=== PATIENT | male | born 1960 ===

== ENCOUNTER 2017-07-06 08:39 | Emergency (ER) | payer OTHER ==
--- NOTE | 2017-07-06 09:01 | ED PDOC ---
Arrival/HPI - General Chief Complaint: Back Pain Time Seen by Provider: 07/06/17 08:43 Historian: Patient - History of Present Illness Narrative History of Present Illness (Text): 07/06/17 08:55 A 56 year old male, whose past medical history includes hypertension and hepatitis C, presents to the emergency department complaining of ongoing constant lower back pain for 1 week. Patient reports he likely obtained pain from lifting at work. States pain worsens with movement, and notes pain is greater on right side than left, radiating down to right lower extremity. Patient denies any urinary symptoms or any other complaints at this time. Patient has taken no medications for the pain. PMD: Dr. Del Rio Time/Duration: 1 week Symptom Onset: Sudden Symptom Course: Unchanged Past Medical History - Provider Review Nursing Documentation Reviewed: Yes - Tetanus Immunization Tetanus Immunization: Unknown - Cardiac Hx Cardiac Disorders: Yes Hx Hypertension: Yes - Pulmonary Hx Respiratory Disorders: Yes Hx Asthma: Yes - Neurological Hx Neurological Disorder: No - HEENT Hx HEENT Disorder: No - Renal Hx Renal Disorder: No - Endocrine/Metabolic Hx Endocrine Disorders: No - Hematological/Oncological Hx Blood Disorders: Yes Hx Hepatitis C: Yes - Integumentary Hx Dermatological Disorder: No - Musculoskeletal/Rheumatological Hx Musculoskeletal Disorders: No - Gastrointestinal Hx Gastrointestinal Disorders: No - Genitourinary/Gynecological Hx Genitourinary Disorders: No - Psychiatric Hx Psychophysiologic Disorder: No Hx Depression: No Hx Emotional Abuse: No Hx Physical Abuse: No Hx Substance Use: No - Past Surgical History Past Surgical History: No Previous - Suicidal Assessment Feels Threatened In Home Enviroment: No Family/Social History - Physician Review Nursing Documentation Reviewed: Yes Family/Social History: No Known Family HX Smoking Status: Never Smoked Hx Alcohol Use: No Hx Substance Use: No Hx Substance Use Treatment: No Allergies/Home Meds Allergies/Adverse Reactions: Allergies No Known Allergies Allergy (Verified 07/06/17 08:51) Review of Systems - Review of Systems Constitutional: absent: Fevers Eyes: absent: Vision Changes Respiratory: absent: SOB Cardiovascular: absent: Chest Pain Gastrointestinal: absent: Abdominal Pain, Nausea, Vomiting, Appetite Changes Genitourinary Male: absent: Dysuria, Frequency, Hematuria, Urinary Output Changes Musculoskeletal: Back Pain. absent: Neck Pain Skin: absent: Rash, Cellulitis Neurological: absent: Headache, Dizziness, Focal Weakness Endocrine: absent: Polyuria Hemo/Lymphatic: absent: Easy Bleeding Physical Exam - Physical Exam Narrative Physical Exam (Text): Head: Atraumatic. Normocephalic. Eyes: PERRL. EOMI. Conjunctivae are not pale. ENT: Mucous membranes are moist and intact. Oropharynx is clear and symmetric. Neck: Supple. Full ROM. No JVD. No lymphadenopathy. Cardiovascular: Regular rate. Regular rhythm. No murmurs, rubs, or gallops. Distal pulses are 2+ and symmetric. Pulmonary/Chest: No evidence of respiratory distress. Clear to auscultation bilaterally. No wheezing, rales or rhonchi. Abdominal: Soft and non-distended. There is no tenderness. No rebound, guarding, or rigidity. No organomegaly. Good bowel sounds. No pulsatile masses. No inguinal masses or hernias palpated. Back: No CVA tenderness. Midline lower lumbar tenderness with muscle spasm to right side. No erythema or edema. Extremities: No edema. No cyanosis. No clubbing. Full range of motion in all extremities. No calf tenderness. Positive straight leg test (right greater than left). Skin: Skin is warm and dry. No petechiae. No purpura. Neurological: Alert, awake, and oriented to person, place, time, and situation. Normal speech. No motor or sensory deficits. No saddle anesthesia. Reflexes symmetric and intact. Psychiatric: Good eye contact. Normal interaction, affect, and behavior. Vital Signs Reviewed: Yes Vital Signs Temp Pulse Resp BP Pulse Ox 07/06/17 11:24 70 17 129/53 L 99 07/06/17 08:52 98.2 F 87 18 148/97 H 97 Temperature: Afebrile Blood Pressure: Normal Pulse: Regular Respiratory Rate: Normal Appearance: Positive for: Well-Appearing Pain Distress: Moderate Mental Status: Positive for: Alert and Oriented X 3 Medical Decision Making ED Course and Treatment: 07/06/17 09:00 Impression: 56 year old male with lower back pain. Physical exam shows midline lower lumbar tenderness with muscle spasms to right side; positive straight leg test (right greater than left); no motor or sensory deficits, no saddle anesthesia. Differential Diagnosis included but are not limited to: Herniated Disc vs. Lumbar Spasm vs. Sciatica. Plan: -- Lumbar Spinal X-Ray -- Toradol -- Flexiril -- Reassess and disposition Progress Notes: Pain is worse with movement, palpable. He is NV intact with no bowel or bladder incontinence. No abdominal pain. No fevers. 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 Dictator: Mauricio Do MD Patient with improved pain after toradol and flexeril. On re-exam, ambulatory and nv intact. Advised rest, activity restrictions, follow-up with Dr. Del Rio. - RAD Interpretation Radiology Orders: 07/06/17 09:00 LS SPINE AP/LAT [RAD] Stat - Medication Orders Current Medication Orders: Discontinued Medications Cyclobenzaprine HCl (Flexeril) 10 mg PO STAT STA Stop: 07/06/17 09:01 Last Admin: 07/06/17 09:15 Dose: 10 mg Ketorolac Tromethamine (Toradol) 30 mg IM STAT STA Stop: 07/06/17 09:01 Last Admin: 07/06/17 09:15 Dose: 30 mg MAR Pain Assessment Document 07/06/17 09:15 (Rec: 07/06/17 09:16 MR [id number]) Pain Reassessment Is this a pain reassessment? No Sleep Is patient sleeping during reassessment? No Presence of Pain Presence of Pain Yes Pain Scale Used Pain Scale Used Numeric Location Left, Right or Bilateral Bilateral Upper or Lower Lower Pain Location Body Site Back Description Description Sharp Pain Behavior Facial Grimacing Aggravating Factors Changing Position Alleviating Factors/Management Medication Techniques IM Administration Charges Document 07/06/17 09:15 (Rec: 07/06/17 09:16 MR [id number]) Injection Site MAR Injection Site Right Deltoid Charges for Administration # of IM Administrations 1 - Scribe Statement The provider has reviewed the documentation as recorded by the [place] Eng Provider Scribe Attestation: All medical record entries made by the Scribe were at my direction and personally dictated by me. I have reviewed the chart and agree that the record accurately reflects my personal performance of the history, physical exam, medical decision making, and the department course for this patient. I have also personally directed, reviewed, and agree with the discharge instructions and disposition. Disposition/Present on Arrival - Present on Arrival Any Indicators Present on Arrival: No History of DVT/PE: No History of Uncontrolled Diabetes: No Urinary Catheter: No History of Decub. Ulcer: No History Surgical Site Infection Following: None - Disposition Have Diagnosis and Disposition been Completed?: Yes Diagnosis: Lumbar radiculopathy, Acute low back pain Disposition: HOME/ ROUTINE Disposition Time: 11:20 Patient Plan: Discharge Condition: GOOD Discharge Instructions (ExitCare): Low Back Pain (DC), Radiculopathy (DC) Additional Instructions: Rest. No heavy lifting or strenuous activity. Follow-up with Dr. Del Rio in 1-2 days. For any increase in pain, any numbness or weakness, any difficulty urinating or moving your bowels, any incontinence. any persistent or worsening of any symptoms, get rechecked. Take medication as directed. Use flexeril with caution may cause drowsiness. Prescriptions: Cyclobenzaprine [Cyclobenzaprine HCl] 10 mg PO TID PRN #12 tab PRN Reason: Muscle Spasm Naproxen 250 mg PO BID PRN #10 tablet PRN Reason: Pain, Mild (1-3) Referrals: [facility] Jennifer Naranjo, [Non-Staff] - Follow up with primary Forms: [employer] ([place]), WORK NOTE
--- NOTE | 2017-07-06 10:11 | RAD ---
PROCEDURE: Radiographs of the Lumbar Spine. HISTORY: low back pain COMPARISON: No prior. FINDINGS: BONES: Normal alignment. No listhesis. No fracture. DISC SPACES: There is disc degeneration at L5-S1 with narrowing of the disc space and osteophyte formation. OTHER FINDINGS: None. 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
[2017-07-06 12:35] VITALS: BP 129/53; PULSE 70; RESP 17; TEMP 98.2; O2SAT 99; BMI 27.3
== END 2017-07-06 11:25 | disposition home or self-care (01) ==
LOC: ED 08:39
DX: M54.16 Radiculopathy, lumbar region (principal); M54.5 Low back pain; I10 Essential (primary) hypertension
CPT/HCPCS: 72100; 96372; 99283; J1885